=== PATIENT | male | born 1945 | race Caucasian/White ===

== ENCOUNTER 2016-11-19 09:59 | Outpatient (CLI) | payer MEDICARE ==
[2016-11-19 10:39] LABS: Anion Gap 13 mmol/L (10-20); BUN (Urea Nitrogen) 15 mg/dL (8.4-25.7); Calc. Creatinine Clearance 0 mL/min (70-130); Calcium 9.5 mg/dL (7.8-10.44); Carbon Dioxide 26 mmol/L (23-31); Chloride 103 mmol/L (98-107); Estimated GFR-MDRD 75; Glucose 95 mg/dL (80-115); Potassium 4.4 mmol/L (3.5-5.1); Sodium 138 mmol/L (136-145)
--- NOTE | 2016-11-19 22:29 | CT ---
CT ABDOMEN AND PELVIS WITH CONTRAST 11/19/[address] of the abdomen and pelvis was performed for evaluation of left sided abdominal pain. Axial slices were acquired, then coronal reconstructions were done after giving IV contrast. Comparison with the 01/30/14 CT shows the pericardial effusion that was present before has resolved. T here is either some pleural fluid on the left or chronic pleural thickening. I would favor the latte r looking at the appearance of the old CT scan. The lungs are otherwise clear. The liver may have so me diffuse fatty infiltration as it is fairly low density, but it is not enlarged, nor is the spleen . The pancreas was unremarkable. There may be a subcentimeter adenoma in the right adrenal gland, th ough it is hard to be certain and it is certainly no different than before. My suspicion of signific ance here is quite low. The kidneys show no mass, hydronephrosis, or obvious calcification. The abdo daria aorta is normal in caliber throughout. The bowel is nondistended. There are no inflammatory changes around bowel, bowel wall thickening, fr ee air or free fluid. There is no evidence for diverticulitis. CT of the pelvis showed no pelvic masses, fluid collections, or inflammatory changes. The prostate i s somewhat large, but unchanged from before. Calcifications are seen within it. Lumbar spinal stenos is is prominent at at least L4-L5 and L5-S1. 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 IMPRESSION: No acute abdominal findings. No changes to explain the patient's left sided abdominal pain. Left ple ural fluid versus chronic pleural thickening. The latter is somewhat favored. POS: HOME
== END 2016-11-19 10:00 | disposition home or self-care (01) ==
LOC: BURCT 09:59
PROVIDERS: ATTEND Family Medicine
DX: R10.9 Unspecified abdominal pain (principal)
CPT/HCPCS: 36415; 74177; 80048

== ENCOUNTER 2016-12-30 08:15 | Outpatient (CLI) | payer MEDICARE ==
[2016-12-30 08:49] LABS: ALT (SGPT) 21 U/L (8-55); AST (SGOT) 20 U/L (5-34); Albumin 4.2 g/dL (3.4-4.8); Alkaline Phosphatase 69 U/L (40-150); Anion Gap 13 mmol/L (10-20); Bilirubin, Direct 0.5 mg/dL (0.1-0.3); Calc. Creatinine Clearance 0 mL/min (70-130); Carbon Dioxide 28 mmol/L (23-31); Cardiac Risk 3.9 (Less than 4.5); Chloride 101 mmol/L (98-107); Cholesterol 131 mg/dL (< 200 Desired); Estimated GFR-MDRD 72; Glucose 104 mg/dL (80-115); HDL Cholesterol 34 mg/dL (>60 Neg Risk); LDL Cholesterol, Calculated 75 mg/dL; Potassium 4.4 mmol/L (3.5-5.1); Protein, Total 7.6 g/dL (5.8-8.1); Sodium 138 mmol/L (136-145); Triglycerides 108 mg/dL (Less than 150)
[2016-12-30 09:11] LABS: BUN (Urea Nitrogen) 17 mg/dL (8.4-25.7)
== END 2016-12-30 08:16 | disposition home or self-care (01) ==
LOC: BURLAB 08:15
PROVIDERS: ATTEND Internal Medicine Cardiovascular Disease
DX: I20.9 Angina pectoris, unspecified (principal); I48.0 Paroxysmal atrial fibrillation; E66.8 Other obesity
CPT/HCPCS: 36415; 80048; 80061; 80076

== ENCOUNTER 2017-04-20 13:58 | Emergency (ER) | payer MEDICARE ==
[2017-04-20] MEDS ORDERED: Lidocaine Viscous Sol 2% 15 ml UD Cup ONE (14:21)
[2017-04-20] MEDS ORDERED: Mag-Al Plus 1200 MG/1200 MG/120 MG/30 ML UDCUP ONE (14:21)
[2017-04-20 14:36] LABS: INR-International Normal Ratio 1.1; PTT 32.1 SEC (22.9-36.1); Prothrombin Time 14.1 SEC (12.0-14.7)
[2017-04-20 14:41] LABS: ALT (SGPT) 23 U/L (8-55); AST (SGOT) 23 U/L (5-34); Albumin 3.7 g/dL (3.4-4.8); Alkaline Phosphatase 66 U/L (40-150); Anion Gap 12 mmol/L (10-20); BUN (Urea Nitrogen) 12 mg/dL (8.4-25.7); Bilirubin, Total 0.8 mg/dL (0.2-1.2); CKMB 0.8 ng/mL (0-6.6); Calc. Creatinine Clearance 0 mL/min (70-130); Calcium 8.9 mg/dL (7.8-10.44); Carbon Dioxide 22 mmol/L (23-31); Chloride 107 mmol/L (98-107); Estimated GFR-MDRD Greater than 90; Globulin 3.4 g/dL (2.4-3.5); Glucose 96 mg/dL (80-115); Lipase 21 U/L (8-78); Protein, Total 7.1 g/dL (5.8-8.1); Sodium 137 mmol/L (136-145); Troponin I Less than 0.010 ng/mL (< 0.028)
[2017-04-20 14:45] LABS: Hemoglobin 14.8 g/dL (14.0-18.0); Mean Corpuscular HGB CONC 33.1 g/dL (32.0-36.0); Mean Corpuscular Hemoglobin 27.9 pg (27.0-31.0); Mean Corpuscular Volume 84.4 fl (80.0-94.0); Mean Platelet Volume 11.9 fL (7.4-10.4); Platelet Count 171 thou/uL (130-400); RBC Distribution Width 13.7 % (11.5-14.5); Red Blood Cell (RBC) Count 5.28 mill/uL (4.70-6.10); White Blood Cell (WBC) Count 9.8 thou/uL (4.8-10.8)
[2017-04-20 14:59] LABS: Eosinophils 2 % (0-10); Lymphocytes 19 % (21-51); MDiff Complete? YES; Monocytes 8 % (0-10); Neutrophil 70 % (42-75); PLT Morphology Comment Appears Adequate; RBC Morphology Normal
[2017-04-20] MEDS ORDERED: Pantoprazole 40 MG VIAL ONE (15:59)
[2017-04-20 16:28] LABS: Troponin I Less than 0.010 ng/mL (< 0.028)
--- NOTE | 2017-04-20 18:39 | RAD ---
AP PORTABLE CHEST 04/20/2017 1403 HOURS COMPARISON: 03/26/2017 FINDINGS: The heart is normal in size for an AP film. There is no vascular congestion, edema, or pleural effu betsy. Lingular scarring is noted. No major infiltrate is seen otherwise. IMPRESSION: Chronic changes but no acute findings. POS: HOME
== END 2017-04-20 16:56 | disposition home or self-care (01) ==
LOC: BURERS 13:58
DX: R07.2 Precordial pain (principal); I10 Essential (primary) hypertension; I25.10 Atherosclerotic heart disease of native coronary artery without angina pectoris; I48.91 Unspecified atrial fibrillation; Z87.891 Personal history of nicotine dependence; Z79.82 Long term (current) use of aspirin; Z79.899 Other long term (current) drug therapy
CPT/HCPCS: 36415; 71010; 80053; 82553; 83690; 83880; 84484; 85025; 85610; 85730; 93005; 94760; C9113

== ENCOUNTER 2018-02-28 15:26 | Emergency (ER) | payer MEDICARE ==
[2018-02-28 15:46] LABS: #Basophils 0.1 thou/uL (0.0-0.2); #Eosinphils 0.4 thou/uL (0.0-0.7); #Lymphocytes 3.4 thou/uL (1.20-3.40); #Monocytes 0.6 thou/uL (0.11-0.59); #Neutrophils 5.5 thou/uL (1.40-6.50); %Basophils 1.4 % (0.0-1.0); %Eosinophils 3.6 % (0.0-10.0); %Lymphocytes 34.5 % (21.0-51.0); %Monocytes 5.9 % (0.0-10.0); %Neutrophils 54.6 % (42.0-75.0); Mean Corpuscular HGB CONC 35.7 g/dL (32.0-36.0); Mean Corpuscular Hemoglobin 28.1 pg (27.0-31.0); Mean Corpuscular Volume 78.7 fL (78.0-98.0); Mean Platelet Volume 9.3 fL (7.4-10.4); Platelet Count 173 thou/uL (130-400); RBC Distribution Width 11.5 % (11.5-14.5); Red Blood Cell (RBC) Count 5.33 mill/uL (4.70-6.10)
[2018-02-28 15:58] LABS: INR-International Normal Ratio 1.7; PTT 37.3 SEC (22.9-36.1); Prothrombin Time 19.9 SEC (12.0-14.7)
[2018-02-28 16:07] LABS: ALT (SGPT) 29 U/L (8-55); AST (SGOT) 22 U/L (5-34); Alkaline Phosphatase 59 U/L (40-150); Anion Gap 13 mmol/L (10-20); BUN (Urea Nitrogen) 15 mg/dL (8.4-25.7); Bilirubin, Total 0.8 mg/dL (0.2-1.2); CK (CPK) 127 U/L (30-200); CKMB 1.1 ng/mL (0-6.6); Calc. Creatinine Clearance 0 mL/min (70-130); Calcium 9.1 mg/dL (7.8-10.44); Carbon Dioxide 25 mmol/L (23-31); Chloride 104 mmol/L (98-107); Estimated GFR-MDRD 56; Globulin 3.2 g/dL (2.4-3.5); Glucose 93 mg/dL (80-115); Lipase 27 U/L (8-78); Magnesium 2.2 mg/dL (1.6-2.6); Protein, Total 7.2 g/dL (5.8-8.1); Sodium 138 mmol/L (136-145); Troponin I Less than 0.010 ng/mL (< 0.028)
--- NOTE | 2018-02-28 16:12 | RAD ---
PORTABLE CHEST: HISTORY: Chest pain. COMPARISON: 04/20/2017 FINDINGS: The lung marcus are clear. No infiltrate or vascular congestion. Heart size is upper normal and sta ble. IMPRESSION: No acute finding. No interval change. POS: [facility]
[2018-02-28 16:18] LABS: Bilirubin Negative (Negative); Clarity Clear (Clear); Glucose, Urine (Dipstick) Negative (Negative); Leukocyte Negative (Negative); Nitrite Negative (Negative); Protein, Urine (Dipstick) Negative (Neg-Trace); Specific Gravity, Urine 1.006 (1.002-1.036); pH, Urine 6.5 (5.0-9.0)
[2018-02-28 16:19] LABS: Blood, Urine Negative (Negative)
== END 2018-02-28 17:17 | disposition home or self-care (01) ==
LOC: BURERS 15:26
DX: R07.9 Chest pain, unspecified (principal); R53.1 Weakness; R60.0 Localized edema; I10 Essential (primary) hypertension; I48.91 Unspecified atrial fibrillation; Z87.891 Personal history of nicotine dependence; Z79.899 Other long term (current) drug therapy
CPT/HCPCS: 71045; 80053; 81003; 82553; 83690; 83735; 83880; 84484; 85025; 85610; 85730; 93005; 94760; 96360

== ENCOUNTER 2019-11-23 07:04 | Emergency (ER) | payer MEDICARE | END 2019-11-23 07:40 | disposition home or self-care (01) | LOC: BURERS 07:04 | DX: K59.00 Constipation, unspecified (principal); I49.9 Cardiac arrhythmia, unspecified; I48.91 Unspecified atrial fibrillation; E78.5 Hyperlipidemia, unspecified; E78.00 Pure hypercholesterolemia, unspecified; I10 Essential (primary) hypertension; I25.10 Atherosclerotic heart disease of native coronary artery without angina pectoris; Z87.891 Personal history of nicotine dependence; Z79.899 Other long term (current) drug therapy; Z79.82 Long term (current) use of aspirin; Z79.01 Long term (current) use of anticoagulants | CPT/HCPCS: 99283 ==

== ENCOUNTER 2022-12-22 05:58 | Emergency (ER) | payer MEDICARE ==
[2022-12-22 06:43] LABS: ALT (SGPT) 92 U/L (8-55); AST (SGOT) 52 U/L (5-34); Alkaline Phosphatase 51 U/L (40-110); Anion Gap 14 mmol/L (10-20); BUN (Urea Nitrogen) 27 mg/dL (8.4-25.7); Bilirubin, Total 1.8 mg/dL (0.2-1.2); Calc. Creatinine Clearance 0 mL/min (70-130); Calcium 9.2 mg/dL (7.8-10.44); Carbon Dioxide 21 mmol/L (23-31); Chloride 108 mmol/L (98-107); Estimated GFR 79; Globulin 3.2 g/dL (2.4-3.5); Glucose 102 mg/dL (83-110); Lipase 33 U/L (8-78); Potassium 3.9 mmol/L (3.5-5.1); Protein, Total 7.2 g/dL (5.8-8.1); Sodium 139 mmol/L (136-145)
[2022-12-22 07:08] LABS: #Basophils 0.2 thou/uL (0.0-0.2); #Eosinphils 0.2 thou/uL (0.0-0.7); #Lymphocytes 4.1 thou/uL (1.20-3.40); #Monocytes 1.2 thou/uL (0.11-0.59); #Neutrophils 7.2 thou/uL (1.40-6.50); %Basophils 1.8 % (0.0-1.0); %Eosinophils 1.3 % (0.0-10.0); %Lymphocytes 32.1 % (21.0-51.0); %Monocytes 9.1 % (0.0-10.0); %Neutrophils 55.9 % (42.0-75.0); Hemoglobin 15.4 g/dL (14.0-18.0); Mean Corpuscular HGB CONC 32.2 g/dL (32.0-36.0); Mean Corpuscular Volume 86.9 fl (78.0-98.0); Platelet Count 45 10x3/uL (130-400); RBC Distribution Width 14.6 % (11.5-14.5); Red Blood Cell (RBC) Count 5.49 mill/uL (4.70-6.10); White Blood Cell (WBC) Count 12.8 10x3/uL (4.8-10.8)
[2022-12-22 07:15] LABS: Platelet Morphology Comment Appears Decreased; RBC Morphology Normal
[2022-12-22 07:20] LABS: Large Platelets SLIGHT; MDiff Complete? YES
[2022-12-22] MEDS ORDERED: Furosemide 40 MG/4 ML VIAL ONE (08:48)
[2022-12-22] MEDS ORDERED: Iopamidol 370 76% 100 ML VIAL ONE (09:35)
== END 2022-12-22 12:15 | disposition home or self-care (01) ==
LOC: BURERS 05:58
DX: R14.0 Abdominal distension (gaseous) (principal); J90 Pleural effusion, not elsewhere classified; I48.91 Unspecified atrial fibrillation; I10 Essential (primary) hypertension; I25.10 Atherosclerotic heart disease of native coronary artery without angina pectoris; E78.00 Pure hypercholesterolemia, unspecified; Z87.891 Personal history of nicotine dependence; Z79.82 Long term (current) use of aspirin; Z79.01 Long term (current) use of anticoagulants; Z79.899 Other long term (current) drug therapy
CPT/HCPCS: 71045; 71275; 74177; 80053; 83690; 83880; 84484; 85025; 85379; 93005; 96374; J1940; Q9967

== ENCOUNTER 2024-08-14 06:36 | Emergency (ER) | payer MEDICARE | END 2024-08-14 08:00 | disposition home or self-care (01) | LOC: BURERS 06:36 | DX: J06.9 Acute upper respiratory infection, unspecified (principal); I25.10 Atherosclerotic heart disease of native coronary artery without angina pectoris; I48.91 Unspecified atrial fibrillation; I50.9 Heart failure, unspecified; E78.00 Pure hypercholesterolemia, unspecified; Z87.891 Personal history of nicotine dependence; Z79.01 Long term (current) use of anticoagulants; Z79.899 Other long term (current) drug therapy | CPT/HCPCS: 71046; 87428 ==

== ENCOUNTER 2025-07-20 07:41 | Outpatient (CLI) | payer MEDICARE ==
[2025-07-20 08:04] LABS: INR-International Normal Ratio 1.6; Prothrombin Time 18.8 sec (12.0-14.7)
== END 2025-07-20 07:42 | disposition home or self-care (01) ==
LOC: BURLAB 07:41
PROVIDERS: ATTEND Family Medicine
DX: Z51.81 Encounter for therapeutic drug level monitoring (principal); I48.91 Unspecified atrial fibrillation; Z79.01 Long term (current) use of anticoagulants
CPT/HCPCS: 85610